=== PATIENT | female | born 1960 | race Caucasian/White ===

== ENCOUNTER 2018-07-25 11:09 | Emergency (ER) | payer SELFPAY ==
[~2018-07-25] VITALS: Ht 160 cm; Wt 90.9 kg
[2018-07-25 11:19] VITALS: Ht 160 cm; Wt 90.9 kg
[2018-07-25] MEDS ORDERED: REQUIP4 MG PO (11:22)
[2018-07-25] MEDS ORDERED: MOBIC7.5 MG PO (11:22)
[2018-07-25] MEDS ORDERED: NEURONTIN 300300 MG PO (11:22)
[2018-07-25] MEDS ORDERED: HYDROCHLOROTHIA25 MG PO (11:22)
[2018-07-25] MEDS ORDERED: OMEPRAZOLE20 M1 PO (11:23)
[2018-07-25] MEDS ORDERED: ZOCOR80 MG PO (11:23)
[2018-07-25] MEDS ORDERED: TORADOL10 MG PO (15:23)
[2018-07-25 15:46] VITALS: BP 127/70
== END 2018-07-25 15:46 | disposition home or self-care (01) ==
LOC: D.ER 11:09
DX: M79.661 Pain in right lower leg (principal); M76.61 Achilles tendinitis, right leg; M79.605 Pain in left leg; M79.604 Pain in right leg